=== PATIENT | male | born 2000 ===

== ENCOUNTER 2023-09-01 00:52 | Emergency (ER) | payer BC ==
[~2023-09-01] VITALS: Ht 172.7 cm; Wt 118.2 kg
[2023-09-01 00:56] VITALS: TEMP 98
[2023-09-01 01:06] LABS: BASO # 0.1 K/mm3 (0.0-0.2); BASO % 0.4 % (0.0-2.0); EOS # 0.2 K/mm3 (0.0-0.7); EOS % 1.2 % (0.0-4.0); GRAN # 7.3 K/mm3 (1.4-6.5); GRAN % 57.8 % (42.2-75.2); HEMATOCRIT 46.7 % (42.0-52.0); HEMOGLOBIN 15.8 g/dl (13.5-18.0); LYMPH # 4.1 K/mm3 (1.2-3.4); LYMPH % 32.1 % (20.0-51.0); MEAN CELL VOLUME 88 fl (80.0-100.0); MEAN CORPUSCULAR HEMOGLOBIN 30 pg (27-31); MEAN CORPUSCULAR HGB CONC 34 g/dl (33.0-37.0); MEAN PLATELET VOLUME 10.5 fl (7.4-10.4); MONO % 7.9 % (1.7-9.3); PLATELET COUNT 295 K/mm3 (130-400); RED BLOOD COUNT 5.31 M/mm3 (4.20-5.60); REDCELL DISTRIBUTION WIDTH-CV 12.6 % (11.5-14.5)
[2023-09-01 01:22] LABS: ALANINE AMINOTRANSFERASE 119 U/L (0-55); ALBUMIN 4.1 gm/dL (3.5-5.0); ALKALINE PHOSPHATASE 89 U/L (40-150); ANION GAP 10 mmol/L (7-16); AST,SGOT 102 U/L (5-34); BILIRUBIN,TOTAL 0.6 mg/dL (0.2-1.2); BLOOD UREA NITROGEN 16 mg/dL (9-21); CALCIUM 9.7 mg/dL (8.4-10.2); CARBON DIOXIDE 24 mmol/L (22-29); CHLORIDE 107 mmol/L (98-107); CREATININE, serum 1.06 mg/dL (0.72-1.25); GLUCOSE 122 mg/dL (70-99); LIPASE 26 U/L (8-78); POTASSIUM 4.1 mmol/L (3.5-4.5); SODIUM 141 mmol/L (136-145); TOTAL PROTEIN 7.6 gm/dL (6.2-8.1)
[2023-09-01 01:28] LABS: TROPONIN-I < 0.010 ng/mL (0.00-0.033)
[2023-09-01] MEDS ORDERED: Ketorolac 30 MG/ML VIAL IV ONE (01:30)
[2023-09-01] MEDS ORDERED: Iohexol 300 - 100 ML VIAL IV ONE (01:37)
[2023-09-01] MEDS ORDERED: NS 64 ML IV SCH (01:38)
[2023-09-01] MEDS ORDERED: Famotidine 20 MG TAB PO ONE (02:30)
[2023-09-01] MEDS ORDERED: Mag/Al Hydrox/Simeth Susp 30 ML CUP PO ONE (02:30)
[2023-09-01] MEDS ORDERED: PROTONIX 40MG T40 MG PO (02:57)
[2023-09-01 03:31] VITALS: BP 142/99; PULSE 64
== END 2023-09-01 03:31 | disposition home or self-care (01) ==
LOC: COL.ER 00:52
PROVIDERS: Nurse Practitioner Primary Care
DX: R07.89 Other chest pain (principal)
CPT/HCPCS: J1885; Q9967